=== PATIENT | female | born 1995 | race Caucasian/White ===

== ENCOUNTER 2022-08-24 14:59 | Emergency (ER) | payer BC ==
[~2022-08-24] VITALS: Ht 157.5 cm; Wt 97.5 kg
--- NOTE | 2022-08-24 15:55 | NUR ---
PT AMBULATORY TO ER BED 11 C/O NOT HAVING SLEEP LAST NIGHT AND STATES ITS BECAUSE OF SEIZURE. ALSO ENDORSES SENSITIVITY TO LIGHT. [employer]. VITALS STABLE. AWAITNG MD PEÑA.
--- NOTE | 2022-08-24 16:49 | NUR ---
DR LANGLEY AT BEDSIDE FOR EVAL.
[2022-08-24] MEDS ORDERED: hydrOXYzine PAMOATE 50 MG CAPSULE PO ONE (17:00)
[2022-08-24] MEDS ORDERED: HYDR-3895 PO (17:20)
[2022-08-24] MEDS ORDERED: hydrOXYzine PAMOATE 25 MG CAPSULE PO ONE (18:00)
[2022-08-24] MEDS ORDERED: IBUPROFEN 600 MG TABLET ONE (18:18)
[2022-08-24 18:22] VITALS: BP 132/82
--- NOTE | 2022-08-24 18:22 | NUR ---
Patient discharged to home in stable condition. Written and verbal after care instructions given. Patient verbalizes understanding of instruction.
[2022-08-24] MEDS ORDERED: IBUPROFEN 600 MG TABLET PO ONE (18:30)
== END 2022-08-24 18:23 | disposition home or self-care (01) ==
LOC: ER 15:01
DX: F43.0 Acute stress reaction (principal); Z86.69 Personal history of other diseases of the nervous system and sense organs; Z88.8 Allergy status to other drugs, medicaments and biological substances; Z79.899 Other long term (current) drug therapy
CPT/HCPCS: 99283; 84703; 82962; Q0177